=== PATIENT | male | born 1965 | race African-American/Black ===

== ENCOUNTER 2016-08-09 17:24 | Emergency (ER) ==
[2016-08-09 17:33] VITALS: BP 161/113
--- NOTE | 2016-08-09 18:38 | PROVIDER DOCUMENTATION ---
HPI-Respiratory General <KarriJosemanuel EvansAnnemarie - Last Filed: 08/09/16 18:41> - General Source: patient - History of Present Illness-Resp Quality of Pain: reports: aching Severity in ED: reports: mild Onset/Duration: reports: 24 hours ago Timing: reports: still present Cough Quality/Degree: reports: mild Current Respiratory Medication Therapy: Initiated see nurses note Associated Symptoms: reports: cough, nasal congestion, other (lower back pain) Similar Symptoms Previously?: No Recently seen or treated by another doctor?: No <Shelly Pickett - Last Filed: 08/09/16 18:44> - General Chief Complaint: Flu Symptoms Stated Complaint: COLD SX Time Seen by Provider: 08/09/16 18:09 Allergies/Adverse Reactions: Patient Allergies Allergy/AdvReac Type Severity Reaction Status Date / Time No Known Allergies Allergy Verified 02/28/16 11:36 Home Medications: Home Medication List Medication Instructions Recorded Confirmed Last Taken Type LISINOpril [Prinivil] 20 mg PO DAILY 10/29/15 02/28/16 02/22/16 History Prednisone 10 mg PO DAILY #21 tablet 08/09/16 Unknown Rx Sulfamethoxazole/Trimethoprim 1 each PO BID #28 tablet 08/09/16 Unknown Rx [Bactrim Ds Tablet] - History of Present Illness-Resp Nature of Presenting Problem: 51 year old M presents to the ED with a cc of cough and congestion with an onset of yesterday. PT also c/o lower back pain. Pt states that he has a history of chronic back pain. (Shelly Pickett) Review of Systems - Adult - REVIEW OF SYSTEMS - ADULT Constitutional: denies: chills, fever Eyes: reports: no symptoms reported Ears, Nose, Mouth & Throat: reports: sinus problem. denies: ear pain, throat pain Cardiovascular: denies: chest pain, palpitations Respiratory: reports: cough. denies: shortness of breath Gastrointestinal: denies: diarrhea, nausea, vomiting Genitourinary: denies: dysuria, hematuria Musculoskeletal: reports: back pain. denies: neck pain Integumentary: denies: skin sores/ulcer, skin thickening Neurological: denies: dizziness/vertigo, headache/migraines Psychiatric: reports: no symptoms reported Endocrine: reports: no symptoms reported Hematologic/Lymphatic: reports: no symptoms reported Allergic/Immunologic: reports: no symptoms reported All Other Systems: Reviewed and Negative <Shelly Pickett - Last Filed: 08/09/16 18:44> Past History - Adult - PAST MEDICAL HISTORY-ADULT Review of Records: reports: Nursing Assessment Review, Medications Reviewed Major Childhood Illnesses: reports: denies history Cardiovascular: reports: denies history Respiratory: reports: denies history Gastrointestinal: reports: hemorrhoids Obstetrical/Gynecological: reports: denies history Genitourinary: reports: denies history Musculoskeletal: reports: chronic pain, neck/back injury Neurological: reports: denies history Endocrine/Immune: reports: denies history Other Conditions: reports: denies history - PRIOR SURGERIES/PROCEDURES Surgical/Procedure History: reports: back/neck - IMMUNIZATION STATUS Childhood Immunizations: UTD, See Nurse Assessment Flu Vaccine: See Nurse Assessment - FAMILY HISTORY Family History: reviewed, not pertinent - SOCIAL HISTORY Smoking: cigarettes, less than 1 pack/day Provider spent 3-5 mins advising pt. on dangers of tobacco.: Discussed manners to quit use, and f/u contacts for add'l counseling. Substance Use: none/never Alcohol Use Frequency: occasionally <Shelly Pickett - Last Filed: 08/09/16 18:44> Physical Exam-General - PHYSICAL EXAM-ADULT Initial Vital Signs Reviewed: Yes - CONSTITUTIONAL General Appearance: appears well, alert, no apparent distress - HEAD, EARS, NOSE, MOUTH & THROAT HENMT: normocephalic/atraumatic, moist mucous membranes, pharynx normal, frontal tenderness, maxillary tenderness, other (nasal congestion) - RESPIRATORY Respiratory: chest non-tender, lungs clear, normal breath sounds - GASTROINTESTINAL (ABDOMEN) Abdominal Exam: normal bowel sounds, non tender, soft - MUSCULOSKELETAL Back Exam: other (lower back tenderness) Extremity: normal inspection - SKIN Integumentary: normal color, normal turgor, warm/dry - PSYCHIATRIC Psych/Mental Status: normal mood/affect, normal thought content, normal thought process, oriented x 3 <Shelly Pickett - Last Filed: 08/09/16 18:44> Progress <Josemanuel Zeng - Last Filed: 08/09/16 18:41> <Shelly Pickett - Last Filed: 08/09/16 18:44> - PLAN OF CARE/RESULTS Progress/Plan/Lab Results: plan of care: labs, medications Orders Category Date Time Status Misc. NRSG Communication Order DIRECTED Care 08/09/16 18:33 Active Flu [INFLUENZA SCREEN PL] Stat Lab 08/09/16 17:30 Completed Ketorolac [Toradol] Med 08/09/16 18:40 Discontinued 60 mg IM NOW ONE Prednisolone Sod Phosphate [Orapred Liquid] Med 08/09/16 18:40 Discontinued 60 mg PO NOW ONE Laboratory Tests 08/09/16 17:30 Influenza A (Rapid) NEGATIVE Influenza B (Rapid) NEGATIVE Vital Signs - 24 hr 08/09/16 17:30 Temperature 98 F Pulse Rate 88 Respiratory 18 Rate Blood Pressure 161/113 O2 Sat by Pulse 99 Oximetry Pt given results and will be d/c home w/ rx to follow up with PCP. Pt verbally understood instructions. PT remained clinically stable throughout the course of the ED stay and will return if symptoms worsen. (Shelly Pickett) Departure - Departure Certified Medical Emergency: Emergent <Josemanuel Zeng - Last Filed: 08/09/16 18:41> - Departure Time of Disposition Order: 18:44 Certified Medical Emergency: Emergent <Shelly Pickett - Last Filed: 08/09/16 18:44> - Departure DIAGNOSIS: Flu-like symptoms Sinusitis Qualifiers: Sinusitis location: unspecified location Chronicity: unspecified Qualified Code (s): J32.9 - Chronic sinusitis, unspecified Chronic back pain Qualifiers: Back pain location: low back pain Back pain laterality: unspecified Sciatica presence: without sciatica Qualified Code(s): M54.5 - Low back pain Disposition: HOME 01 Condition: Stable Additional Instructions: take tylenol and motrin for pain, take Zyrtec or Claritin for allergies, followup with primary care provider Prescriptions: Sulfamethoxazole/Trimethoprim [Bactrim Ds Tablet] 1 each PO BID #28 tablet Prednisone 10 mg PO DAILY #21 tablet Referrals: Deepa Casillas CRNP [Primary Care Provider] - Attestation - Scribe Verification/Attestation Scribe:: Shelly Pickett Acting as Scribe for:: Josemanuel Zeng Scribe documention review:: This chart was documented by a scribe and accurately reflects the service the provider performed and the decisions made by the provider. <Shelly Pickett - Last Filed: 08/09/16 18:44> Physician Attestation - Physician Attestation I, the provider, attest to the following statement:: Josemanuel Zeng Physician documentation Attestation:: This documentation recorded by the scribe accurately reflects the service I personally performed and the decisions made by me. <Shelly Pickett - Last Filed: 08/09/16 18:44>
[2016-08-09] MEDS ORDERED: ORAPRED LIQUID PO ONE (18:40)
[2016-08-09] MEDS ORDERED: TORADOL IM ONE (18:40)
== END 2016-08-09 18:58 | disposition home or self-care (01) ==
LOC: P.ED 17:24
DX: J11.1 Influenza due to unidentified influenza virus with other respiratory manifestations (principal); J32.9 Chronic sinusitis, unspecified; M54.5 Low back pain; G89.29 Other chronic pain; R05 Cough; R09.81 Nasal congestion; F17.210 Nicotine dependence, cigarettes, uncomplicated; Z71.6 Tobacco abuse counseling; Z79.899 Other long term (current) drug therapy
CPT/HCPCS: 87804; 96372; J1885; J7510